=== PATIENT | male | born 1985 | race Two or more races ===

== ENCOUNTER → 2025-06-07 | Outpatient (CLI) | payer OTHER, SELFPAY ==
--- NOTE | 2025-06-07 11:15 | XR_ITS ---
Examination: Breast ultrasound complete, bilateral Date and time of exam: June 07, 2025, 1125 hours INDICATIONS: Gynecomastia bilateral retroareolar swelling 1 year Technique: Real-time grayscale ultrasonographic imaging bilateral breasts, including all 4 quadrants as well as nipple retroareolar and axillary regions. Findings: Sonographic images right breast No cystic or solid mass Sonographic images left breast Cystic retroareolar area 9 x 11 mm with internal debris IMPRESSION: BI-RADS Category 3: Probably benign findings Recommend 1 additional 6-month left breast sonogram follow-up to document stability of cystic mass with internal echoes retroareolar region left breast
== END | disposition home or self-care (01) ==
PROVIDERS: PCP Student in an Organized Health Care Education/Training Program; Referring Provider Student in an Organized Health Care Education/Training Program; Visit Provider Student in an Organized Health Care Education/Training Program
DX: N60.02 Solitary cyst of left breast (principal)
CPT/HCPCS: 76641